=== PATIENT | male | born 1970 | race Native Hawaiian/Other Pacific Islander ===

== ENCOUNTER 2020-02-24 13:10 | Outpatient (CLI) | payer OTHER | END 2020-02-24 23:16 | disposition home or self-care (01) | LOC: RAD 13:10 | DX: M54.5 Low back pain (principal) ==

== ENCOUNTER 2022-03-13 17:29 | Outpatient (CLI) | payer OTHER | END 2022-03-13 23:00 | disposition home or self-care (01) | LOC: RAD 17:29 | PROVIDERS: ATTEND Internal Medicine | DX: M54.2 Cervicalgia (principal) ==